=== PATIENT | female | born 1985 | race African-American/Black ===

== ENCOUNTER 2018-08-17 21:42 | Emergency (ER) | payer OTHER, MEDICAID ==
[~2018-08-17] VITALS: Ht 167.6 cm; Wt 71.0 kg
[~2018-08-17 21:42] MED LIST: NO HOME MEDICATIONS
[2018-08-17] MEDS ORDERED: VISCOUS LIDOCAINE 2% 15 ML UDC MM STA (23:01)
[2018-08-17] MEDS ORDERED: MAGNESIUM/ALUMINUM HYDROXIDE/SIMETHICONE 30ML UDC PO ONE (23:15)
[2018-08-17] MEDS ORDERED: HALOPERIDOL LACTATE 5MG/ML VIAL IM ONE (23:15)
[2018-08-18] MEDS ORDERED: ONDANSETRON HCL 4MG/2ML INJ IV ONE (00:45)
[2018-08-18 00:57] LABS: CLARITY URINE TURBID (CLEAR); COLOR URINE YELLOW (YELLOW); KETONES URINE 3+ (NEGATIVE); LEUKOCYTE ESTERASE URINE NEGATIVE (NEGATIVE); NITRITE URINE NEGATIVE (NEGATIVE); OCCULT BLOOD URINE NEGATIVE (NEGATIVE); PH URINE 8.5 (4.5-8.0); PROTEIN URINE NEGATIVE (NEGATIVE); SPECIFIC GRAVITY URINE 1.014 (1.005-1.030); UROBILINOGEN URINE 0.2 E.U./dL (0.2-1.0)
[2018-08-18] MEDS ORDERED: KETOROLAC 30MG/ML VIAL IV NR (01:00)
[2018-08-18 01:01] LABS: HEMATOCRIT 32.6 % (36.0-48.0); HEMOGLOBIN 10.5 g/dL (12.0-16.0); MEAN CORPUSCULAR HEMOGLOBIN 23.8 pg (28.0-32.0); MEAN CORPUSCULAR VOLUME 73.8 fL (81.0-99.0); PLATELET 201 x1000/uL (130-400); RED BLOOD CELL COUNT 4.41 mill/uL (4.2-5.4); RED CELL DISTRIBUTION WIDTH 21.2 % (11.6-14.6)
[2018-08-18 01:11] LABS: CHLORIDE 104 mEq/L (98-107)
[2018-08-18] MEDS ORDERED: HALOPERIDOL LACTATE 5MG/ML VIAL IM NR (03:30)
[2018-08-18 06:51] VITALS: BP 175/100
== END 2018-08-18 06:56 | disposition home or self-care (01) ==
LOC: ER 21:42
DX: F12.188 Cannabis abuse with other cannabis-induced disorder (principal); F17.200 Nicotine dependence, unspecified, uncomplicated; R03.0 Elevated blood-pressure reading, without diagnosis of hypertension; Z90.49 Acquired absence of other specified parts of digestive tract
CPT/HCPCS: 36415; 76830; 76856; 80053; 81003; 81025; 83690; 85027; 96372; 96374; 96375; 99285; J1630; J1885; J2405; C1893

== ENCOUNTER 2021-09-03 12:11 | Emergency (ER) | payer MEDICAID, OTHER ==
[~2021-09-03] VITALS: Ht 170.2 cm; Wt 68.0 kg
[2021-09-03 13:20] LABS: CLARITY URINE CLEAR (CLEAR); COLOR URINE YELLOW (YELLOW); KETONES URINE 1+ (NEGATIVE); LEUKOCYTE ESTERASE URINE NEGATIVE (NEGATIVE); NITRITE URINE NEGATIVE (NEGATIVE); OCCULT BLOOD URINE NEGATIVE (NEGATIVE); PROTEIN URINE NEGATIVE (NEGATIVE); SPECIFIC GRAVITY URINE 1.014 (1.005-1.030); UROBILINOGEN URINE 0.2 E.U./dL (0.2-1.0)
[2021-09-03] MEDS ORDERED: LORAZEPAM 1MG TABLET PO ONE (14:45)
[2021-09-03 15:39] LABS: *AMPHETAMINES SCREEN URINE NEGATIVE (NEGATIVE); *BARBITURATES SCREEN URINE NEGATIVE (NEGATIVE); *BENZODIAZEPINES SCREEN URINE NEGATIVE (NEGATIVE); *COCAINE SCREEN URINE NEGATIVE (NEGATIVE); METHADONE URINE SCREEN NEGATIVE (NEGATIVE)
[2021-09-03 15:40] LABS: PHENCYCLIDINE URINE SCREEN NEGATIVE (NEGATIVE)
[2021-09-03 16:02] LABS: CANNABINOID URINE SCREEN PRESUMTIVE POSITIVE (NEGATIVE); OPIATES URINE SCREEN PRESUMTIVE POSITIVE (NEGATIVE)
[2021-09-03] MEDS ORDERED: KETOROLAC 15MG/ML VIAL IV ONE (16:15)
[2021-09-03 16:45] LABS: HEMOGLOBIN. 9.8 g/dL (12.0-16.0); MEAN CORPUSCULAR HEMOGLOBIN 22.8 pg (28.0-32.0); MEAN CORPUSCULAR VOLUME 74.3 fL (81.0-99.0); MEAN PLATELET VOLUME 8.6 fl (7.4-10.4); PLATELET 324 x1000/uL (130-400); RED CELL DISTRIBUTION WIDTH 19.9 % (11.6-14.6)
[2021-09-03 16:48] LABS: CHLORIDE 106 mEq/L (98-107)
[2021-09-03 18:27] LABS: PLATELET ESTIMATE NORMAL
[2021-09-03 18:39] VITALS: BP 132/89
[2021-09-03 18:41] LABS: HCG SCREEN NEGATIVE
== END 2021-09-03 18:49 | disposition left against medical advice (07) ==
LOC: ER 12:27
DX: R56.9 Unspecified convulsions (principal); F12.10 Cannabis abuse, uncomplicated; Z98.890 Other specified postprocedural states; Z86.59 Personal history of other mental and behavioral disorders
CPT/HCPCS: 36415; 80048; 80076; 80305; 81003; 81025; 83690; 84703; 85025; 93005; 96374; 99284; J1885

== ENCOUNTER 2022-05-12 12:07 | Emergency (ER) | payer MEDICAID, OTHER ==
[~2022-05-12] VITALS: Ht 165.1 cm; Wt 54.0 kg
[2022-05-12 12:11] VITALS: BP 131/91
[2022-05-12] MEDS ORDERED: FAMOTIDINE 20MG/2ML VIAL IV STA (12:35)
[2022-05-12] MEDS ORDERED: MAGNESIUM/ALUMINUM HYDROXIDE/SIMETHICONE 30ML UDC PO STA (12:35)
[2022-05-12] MEDS ORDERED: ONDANSETRON HCL 4MG/2ML INJ IV STA (12:35)
[2022-05-12] MEDS ORDERED: SODIUM CHLORIDE 0.9% 1,000 ML IV ONE (12:45)
[2022-05-12 13:26] LABS: HEMATOCRIT. 36.8 % (36.0-48.0); MEAN CORPUSCULAR HEMOGLOBIN 25.3 pg (28.0-32.0); MEAN CORPUSCULAR VOLUME 77.5 fL (81.0-99.0); MEAN PLATELET VOLUME 7.9 fl (7.4-10.4); PLATELET 241 x1000/uL (130-400); RED BLOOD CELL COUNT 4.75 mill/uL (4.2-5.4); RED CELL DISTRIBUTION WIDTH 19.7 % (11.6-14.6)
[2022-05-12] MEDS ORDERED: HALOPERIDOL LACTATE 5MG/ML VIAL IM ONE (13:30)
[2022-05-12 13:33] LABS: CHLORIDE 104 mEq/L (98-107)
[2022-05-12 14:11] LABS: PLATELET ESTIMATE NORMAL
[2022-05-12] MEDS ORDERED: BENZTROPINE MESYLATE 1 MG/ML 2ML VIAL IM ONE (14:15)
[2022-05-12] MEDS ORDERED: MAG355OR20 PO (16:33)
[2022-05-12] MEDS ORDERED: FAMO40TA7 MT (16:33)
[2022-05-12] MEDS ORDERED: ONDA4TAB50 MT (16:33)
[2022-05-13] MEDS ORDERED: TRAM50TA3 MT (17:21)
[2022-05-13] MEDS ORDERED: CIPR500S3 MT (17:21)
[2022-05-13] MEDS ORDERED: ONDA4TAB11 PO (17:21)
== END 2022-05-12 16:43 | disposition home or self-care (01) ==
LOC: ER 12:07
DX: K29.70 Gastritis, unspecified, without bleeding (principal); G40.909 Epilepsy, unspecified, not intractable, without status epilepticus; Z79.899 Other long term (current) drug therapy; Z88.6 Allergy status to analgesic agent; Z59.01 Sheltered homelessness
CPT/HCPCS: 36415; 80053; 83690; 85025; 96361; 96372; 96374; 96375; 99284; J0515; J1630; J2405; J3490; J7030

== ENCOUNTER 2022-05-13 10:59 | Emergency (ER) | payer OTHER ==
[~2022-05-13] VITALS: Ht 160 cm; Wt 50.0 kg
[~2022-05-13 10:59] MED LIST changes: +FAMO40TA7 MT; +MAG355OR20 PO; +ONDA4TAB50 MT
[2022-05-13] MEDS ORDERED: DIPHENHYDRAMINE 50MG/ML VIAL IV ONE (11:45)
[2022-05-13] MEDS ORDERED: SODIUM CHLORIDE 0.9% 1000ML BAG (SEPSIS BOLUS) IV ONE (11:45)
[2022-05-13] MEDS ORDERED: ONDANSETRON HCL 4MG/2ML INJ IV ONE (11:45)
[2022-05-13] MEDS ORDERED: MORPHINE SULFATE 4 MG/ML CPJ (NOT FOR IM USE) IV ONE (11:45)
[2022-05-13 12:16] VITALS: BP 166/102
[2022-05-13 12:26] LABS: HEMATOCRIT. 38.9 % (36.0-48.0); HEMOGLOBIN. 12.7 g/dL (12.0-16.0); MEAN CORPUSCULAR HEMOGLOBIN 25.1 pg (28.0-32.0); MEAN PLATELET VOLUME 8.6 fl (7.4-10.4); PLATELET 244 x1000/uL (130-400); RED BLOOD CELL COUNT 5.05 mill/uL (4.2-5.4); RED CELL DISTRIBUTION WIDTH 20.3 % (11.6-14.6)
[2022-05-13 12:40] LABS: CHLORIDE 102 mEq/L (98-107)
[2022-05-13 13:16] LABS: UCG SCREEN NEGATIVE
[2022-05-13 13:27] LABS: PLATELET ESTIMATE NORMAL
[2022-05-13] MEDS ORDERED: CIPR500S3 MT (17:21)
[2022-05-13] MEDS ORDERED: ONDA4TAB11 PO (17:21)
[2022-05-13] MEDS ORDERED: TRAM50TA3 MT (17:21)
[2022-05-13] MEDS ORDERED: IOHEXOL-300 100 ML BOTTLE ONE (18:11)
== END 2022-05-13 17:48 | disposition home or self-care (01) ==
LOC: ER 11:09
DX: K52.9 Noninfective gastroenteritis and colitis, unspecified (principal); F12.10 Cannabis abuse, uncomplicated; Z79.899 Other long term (current) drug therapy
CPT/HCPCS: 36415; 74177; 80053; 81025; 83690; 85025; 96361; 96374; 96375; 99285; J1200; J2270; J2405; J7030; Q9967

== ENCOUNTER 2022-06-13 04:46 | Emergency (ER) | payer OTHER ==
[~2022-06-13] VITALS: Ht 162.6 cm; Wt 61.0 kg
[~2022-06-13 04:46] MED LIST changes: +CIPR500S3 MT; +ONDA4TAB11 PO; +TRAM50TA3 MT
[2022-06-13 05:28] VITALS: BP 140/96
[2022-06-13] MEDS ORDERED: KETOROLAC 60MG/2ML VIAL IM ONE (09:00)
== END 2022-06-13 09:47 | disposition left against medical advice (07) ==
LOC: ER 04:46
DX: M25.512 Pain in left shoulder (principal); K21.9 Gastro-esophageal reflux disease without esophagitis; F12.10 Cannabis abuse, uncomplicated; Z88.8 Allergy status to other drugs, medicaments and biological substances; Z88.6 Allergy status to analgesic agent
CPT/HCPCS: 81025; 99283

== ENCOUNTER 2022-12-17 06:22 | Emergency (ER) | payer OTHER ==
[~2022-12-17] VITALS: Ht 157.5 cm; Wt 70.0 kg
[2022-12-17 07:36] LABS: CLARITY URINE CLEAR (CLEAR); COLOR URINE YELLOW (YELLOW); KETONES URINE 1+ (NEGATIVE); LEUKOCYTE ESTERASE URINE TRACE (NEGATIVE); NITRITE URINE NEGATIVE (NEGATIVE); OCCULT BLOOD URINE 3+ (NEGATIVE); PH URINE 6.5 (4.5-8.0); PROTEIN URINE 1+ (NEGATIVE); SPECIFIC GRAVITY URINE 1.029 (1.005-1.030)
[2022-12-17] MEDS ORDERED: MORPHINE SULFATE 10 MG/ML CPJ IM ONE (07:45)
[2022-12-17] MEDS ORDERED: ONDANSETRON 4MG ODT PO ONE (07:45)
[2022-12-17] MEDS ORDERED: DIPHENHYDRAMINE 50MG/ML VIAL IM ONE (07:45)
[2022-12-17] MEDS ORDERED: FAMOTIDINE 20MG TABLET PO ONE (07:45)
[2022-12-17 08:17] LABS: *AMPHETAMINES SCREEN URINE NEGATIVE (NEGATIVE); *BARBITURATES SCREEN URINE NEGATIVE (NEGATIVE); *BENZODIAZEPINES SCREEN URINE NEGATIVE (NEGATIVE); *COCAINE SCREEN URINE NEGATIVE (NEGATIVE); METHADONE URINE SCREEN NEGATIVE (NEGATIVE); PHENCYCLIDINE URINE SCREEN NEGATIVE (NEGATIVE)
[2022-12-17 08:39] LABS: CHLORIDE 103 mEq/L (98-107)
[2022-12-17 08:46] LABS: BASOPHILS % 0.3 % (0.0-2.0); EOSINOPHILS % 0.2 % (0.0-5.0); HEMATOCRIT. 35.5 % (36.0-48.0); HEMOGLOBIN. 11.5 g/dL (12.0-16.0); LYMPHOCYTES % 18.1 % (20.0-50.0); MEAN CORPUSCULAR HEMOGLOBIN 22.6 pg (28.0-32.0); MEAN CORPUSCULAR VOLUME 69.6 fL (81.0-99.0); MEAN PLATELET VOLUME 8.8 fl (7.4-10.4); MONOCYTES % 8.1 % (2.0-8.0); NEUTROPHILS % 73.3 % (40.0-76.0); PLATELET 264 x1000/uL (130-400); RED CELL DISTRIBUTION WIDTH 28.7 % (11.6-14.6)
[2022-12-17 08:47] LABS: CANNABINOID URINE SCREEN PRESUMTIVE POSITIVE (NEGATIVE); OPIATES URINE SCREEN PRESUMTIVE POSITIVE (NEGATIVE)
[2022-12-17 08:47] LABS: ETHANOL BLOOD < 10 mg/dL
[2022-12-17 09:01] LABS: HCG SCREEN NEGATIVE
[2022-12-17] MEDS ORDERED: LORAZEPAM 2MG/ML CPJ IV ONE (09:15)
[2022-12-17] MEDS ORDERED: MORPHINE SULFATE 4 MG/ML CPJ (NOT FOR IM USE) IV ONE (09:45)
[2022-12-17 09:59] VITALS: BP 113/68
[2022-12-17 11:07] LABS: PLATELET ESTIMATE NORMAL
[2022-12-17] MEDS ORDERED: FAMO-135 MT (14:40)
[2022-12-17] MEDS ORDERED: TRAM50TA3 MT (14:40)
[2022-12-17] MEDS ORDERED: MAG355OR21 MT (14:40)
== END 2022-12-17 11:38 | disposition home or self-care (01) ==
LOC: ER 06:22
DX: K29.70 Gastritis, unspecified, without bleeding (principal); F12.10 Cannabis abuse, uncomplicated; F17.210 Nicotine dependence, cigarettes, uncomplicated; Z90.49 Acquired absence of other specified parts of digestive tract; Z88.8 Allergy status to other drugs, medicaments and biological substances; Z88.6 Allergy status to analgesic agent
CPT/HCPCS: 36415; 76856; 80053; 80305; 80320; 81003; 81025; 83690; 84703; 85025; 96372; 96374; 96375; 99285; J1200; J2060; J2270; Q0162; Z7610; G0480

== ENCOUNTER 2022-12-17 14:00 | Emergency (ER) | payer OTHER ==
[~2022-12-17] VITALS: Ht 160 cm; Wt 49.0 kg
[2022-12-17 14:34] VITALS: BP 128/88
[2022-12-17] MEDS ORDERED: TRAM50TA3 MT (14:40)
[2022-12-17] MEDS ORDERED: MAG355OR21 MT (14:40)
[2022-12-17] MEDS ORDERED: FAMO-135 MT (14:40)
== END 2022-12-17 16:37 | disposition home or self-care (01) ==
LOC: ER 14:00
DX: Z76.0 Encounter for issue of repeat prescription (principal); F12.10 Cannabis abuse, uncomplicated; Z88.8 Allergy status to other drugs, medicaments and biological substances; Z88.6 Allergy status to analgesic agent
CPT/HCPCS: 99281

== ENCOUNTER 2023-08-18 20:26 | Emergency (ER) | payer OTHER ==
[~2023-08-18] VITALS: Ht 149.9 cm; Wt 60.0 kg
[~2023-08-18 20:26] MED LIST changes: -CIPR500S3 MT; +FAMO-135 MT; +MAG355OR21 MT; -NO HOME MEDICATIONS
[2023-08-18 20:31] VITALS: O2SAT 96
[2023-08-18 22:14] LABS: DIFFERENTIAL COMMENT 1; HEMATOCRIT. 29.9 % (36.0-48.0); HEMOGLOBIN. 9.3 g/dL (12.0-16.0); MEAN CORPUSCULAR HGB CONC 31.1 g/dL (31.0-37.0); MEAN CORPUSCULAR VOLUME 64.3 fL (81.0-99.0); MEAN PLATELET VOLUME 8.8 fl (7.4-10.4); PLATELET 294 x1000/uL (130-400); RED BLOOD CELL COUNT 4.66 mill/uL (4.2-5.4); RED CELL DISTRIBUTION WIDTH 21.8 % (11.6-14.6); WHITE BLOOD COUNT 10.1 x1000/uL (4.5-11.0)
[2023-08-18 22:21] LABS: ALANINE AMINOTRANSFERASE 19 IU/L (10-49); ALBUMIN 4.8 g/dL (3.2-4.8); ASPARTATE AMINOTRANSFERASE 25 IU/L (<34); BILIRUBIN TOTAL 0.4 mg/dL (0.1-1.0); CARBON DIOXIDE 25 mEq/L (21-32); CHLORIDE 101 mEq/L (98-107); CREATININE 0.7 mg/dL (0.6-1.0); GLUCOSE 106 mg/dL (70-105); POTASSIUM 3.5 mEq/L (3.5-5.1); PROTEIN TOTAL 8.1 g/dL (6.0-8.3); SODIUM 137 mEq/L (136-145); UREA NITROGEN BLOOD 10 mg/dL (9-23)
[2023-08-18 22:23] LABS: HCG SCREEN NEGATIVE
[2023-08-18] MEDS ORDERED: ONDANSETRON HCL 4MG/2ML INJ IV ONE (22:30)
[2023-08-18] MEDS ORDERED: HALOPERIDOL LACTATE 5MG/ML VIAL IM ONE (22:30)
[2023-08-18] MEDS ORDERED: KETOROLAC 15MG/ML VIAL IM ONE (23:00)
[2023-08-18 23:15] LABS: PLATELET ESTIMATE NORMAL
[2023-08-18 23:16] LABS: ANISOCYTOSIS 2+; HYPOCHROMASIA 2+; MICROCYTOSIS 3+; TARGET CELLS FEW
[2023-08-18] MEDS ORDERED: ONDANSETRON 4MG ODT PO ONE (23:30)
[2023-08-19 02:52] VITALS: BP 120/66; PULSE 86; RESP 16; TEMP 98
== END 2023-08-19 02:53 | disposition home or self-care (01) ==
LOC: ER 20:26
DX: R10.9 Unspecified abdominal pain (principal); F12.10 Cannabis abuse, uncomplicated
CPT/HCPCS: 99284; 80053; 84703; 83690; 85025; 85044; 36415; 96372; Q0162; J1630; J1885